=== PATIENT | female | born 1985 | race African-American/Black ===

== ENCOUNTER 2017-11-17 04:50 | Observation (INO) | payer MEDICAID ==
[2017-11-17 06:07] LABS: Urine Bacteria FEW /hpf (None Seen); Urine Blood TRACE /uL (Negative); Urine Budding Yeast OCCASIONAL /hpf (None Seen); Urine Mucus FEW (None Seen); Urine Specific Gravity 1.015 (1.001-1.035); Urine WBC 37 /hpf (0 - 5)
[2017-11-17 06:21] LABS: Alcohol, Urine < 3.0 mg/dL (0-5); Amphetamine Screen, Urine NEGATIVE (NEGATIVE); Barbiturate Scree,Urine NEGATIVE (NEGATIVE); Benzodiazephine Screen, Urine NEGATIVE (NEGATIVE); Cannabinoid Screen, Urine NEGATIVE (NEGATIVE); Cocaine Screen, Urine NEGATIVE (NEGATIVE); Opiate Scree,Urine NEGATIVE (NEGATIVE); Phencyclidine Screen, Urine NEGATIVE (NEGATIVE)
[2017-11-17] MEDS ORDERED: PREN-96 PO (15:49)
== END 2017-11-17 06:40 | disposition home or self-care (01) | DRG 566 ==
LOC: LDRP 04:50
PROVIDERS: ADMIT Obstetrics & Gynecology; ATTEND Obstetrics & Gynecology
DX: O62.9 Abnormality of forces of labor, unspecified (principal); O99.323 Drug use complicating pregnancy, third trimester; F12.90 Cannabis use, unspecified, uncomplicated; O99.89 Other specified diseases and conditions complicating pregnancy, childbirth and the puerperium; M54.9 Dorsalgia, unspecified; O99.343 Other mental disorders complicating pregnancy, third trimester; F31.9 Bipolar disorder, unspecified; F20.9 Schizophrenia, unspecified; Z3A.38 38 weeks gestation of pregnancy
CPT/HCPCS: 80307; 81001; G0378

== ENCOUNTER 2017-11-17 11:55 | Observation (INO) | payer MEDICAID ==
[2017-11-17 13:43] LABS: Urine Bacteria MANY /hpf (None Seen); Urine Blood 1+ /uL (Negative); Urine Mucus FEW (None Seen); Urine WBC 42 /hpf (0 - 5)
[2017-11-17 13:45] LABS: Basophils # (auto) 0 uL; Basophils % (auto) 0.5 % (0.0-2.0); Eosinophils # (auto) 0.1 uL; Eosinophils % (auto) 1.5 % (0.0-7.0); Hematocrit 37.1 % (36.0-46.0); Hemoglobin 12.8 g/dL (12.2-16.2); Lymphocytes # (auto) 1.8 uL; Lymphocytes % (auto) 29.7 % (10.0-50.0); Mean Corpuscular Hemoglobin 32.3 pg (28.0-32.0); Mean Corpuscular Hgb Conc. 34.4 g/dL (32.0-36.0); Mean Corpuscular Volume 93.8 fL (80.0-100.0); Monocytes # (auto) 0.4 uL; Monocytes % (auto) 7.2 % (0.0-12.0); Neutrophils # (auto) 3.6 uL; Neutrophils % (auto) 61.1 % (37.0-80.0); Nucleated Red Blood Cells % 0.1 %; Platelet Count (auto) 246 10^3/uL (140-450); Red Blood Cells 3.96 10^6/uL (4.0-5.20); Red Cell Distribution Width 14.5 % (11.8-14.3); White Blood Cell 5.9 10^3/uL (4.4-10.8)
[2017-11-17 14:02] LABS: Albumin 2.6 g/dL (3.4-5.0); Bilirubin, Total 0.4 mg/dL (0.2-1.0); Calcium 8.7 mg/dL (8.5-10.1); Potassium 3.6 mmol/L (3.5-5.1); Total Protein 6.7 g/dL (6.4-8.2); Uric Acid 5.6 mg/dL (2.6-6.0)
[2017-11-17 14:05] LABS: INR 0.86 (0.9-1.15); Partial Thromboplastin Time 25.7 sec (23.78-33.04); Prothrombin Time 9.3 sec (9.27-12.13)
[2017-11-17] MEDS ORDERED: PREN-96 PO (15:49)
== END 2017-11-17 13:50 | disposition home or self-care (01) | DRG 566 ==
LOC: LDRP 11:55
PROVIDERS: ADMIT Specialist; ATTEND Specialist
DX: O13.9 Gestational [pregnancy-induced] hypertension without significant proteinuria, unspecified trimester (principal); Z3A.00 Weeks of gestation of pregnancy not specified
CPT/HCPCS: 36415; 59025; 80053; 81001; 81002; 84550; 85025; 85610; 85730; G0378

== ENCOUNTER 2017-11-19 10:02 | Observation (INO) | payer MEDICAID ==
[~2017-11-19 10:02] MED LIST: PREN-96 PO
[2017-11-19 11:43] LABS: Protein, Urine 13.8 mg/dL (0.0-11.9)
[2017-11-19 12:04] LABS: 24 Hr. Total Protein, Urine 220.8 mg/24 Hr (<149.1)
== END 2017-11-19 13:10 | disposition home or self-care (01) | DRG 566 ==
LOC: LDRP 10:02
PROVIDERS: ADMIT Specialist; ATTEND Specialist
DX: O13.3 Gestational [pregnancy-induced] hypertension without significant proteinuria, third trimester (principal); O26.893 Other specified pregnancy related conditions, third trimester; R10.11 Right upper quadrant pain; R51 Headache; Z3A.38 38 weeks gestation of pregnancy
CPT/HCPCS: 59025; 76818; 81002; 84156; G0378

== ENCOUNTER 2017-11-22 18:51 | Observation (INO) | payer MEDICAID ==
[2017-11-22] MEDS ORDERED: LABE200T18 PO (19:19)
== END 2017-11-22 20:35 | disposition home or self-care (01) | DRG 566 ==
LOC: LDRP 18:51
PROVIDERS: ADMIT Specialist; ATTEND Specialist
DX: O13.3 Gestational [pregnancy-induced] hypertension without significant proteinuria, third trimester (principal); O99.323 Drug use complicating pregnancy, third trimester; O26.893 Other specified pregnancy related conditions, third trimester; O99.343 Other mental disorders complicating pregnancy, third trimester; F17.210 Nicotine dependence, cigarettes, uncomplicated; R51 Headache; R42 Dizziness and giddiness; Z3A.38 38 weeks gestation of pregnancy; O99.333 Smoking (tobacco) complicating pregnancy, third trimester; F12.90 Cannabis use, unspecified, uncomplicated
CPT/HCPCS: 59025; 76818; 81002; G0378

== ENCOUNTER 2017-11-23 21:25 | Inpatient (IN) | payer MEDICAID ==
[~2017-11-23] VITALS: Ht 170.2 cm; Wt 110.2 kg
[~2017-11-23 21:25] MED LIST changes: +LABE200T18 PO
[2017-11-23 22:14] LABS: Urine Bacteria MOD /hpf (None Seen); Urine Blood Negative /uL (Negative); Urine Mucus FEW (None Seen); Urine Specific Gravity 1.024 (1.001-1.035); Urine WBC 13 /hpf (0 - 5)
[2017-11-23 22:33] LABS: Basophils # (auto) 0 uL; Basophils % (auto) 0.6 % (0.0-2.0); Eosinophils # (auto) 0.1 uL; Eosinophils % (auto) 1.4 % (0.0-7.0); Hematocrit 33.2 % (36.0-46.0); Hemoglobin 11.2 g/dL (12.2-16.2); Lymphocytes # (auto) 1.6 uL; Lymphocytes % (auto) 27.4 % (10.0-50.0); Mean Corpuscular Hemoglobin 32.1 pg (28.0-32.0); Mean Corpuscular Hgb Conc. 33.7 g/dL (32.0-36.0); Mean Corpuscular Volume 95.3 fL (80.0-100.0); Monocytes # (auto) 0.5 uL; Monocytes % (auto) 7.7 % (0.0-12.0); Neutrophils # (auto) 3.8 uL; Neutrophils % (auto) 62.9 % (37.0-80.0); Platelet Count (auto) 214 10^3/uL (140-450); Red Blood Cells 3.48 10^6/uL (4.0-5.20); Red Cell Distribution Width 14.7 % (11.8-14.3)
[2017-11-23 22:51] LABS: INR 0.85 (0.9-1.15); Partial Thromboplastin Time 21.5 sec (23.78-33.04); Prothrombin Time 9.2 sec (9.27-12.13)
[2017-11-23 22:52] LABS: Albumin 2.2 g/dL (3.4-5.0); BUN/Creatinine Ratio 7.7; Bilirubin, Total 0.2 mg/dL (0.2-1.0); Calcium 8.4 mg/dL (8.5-10.1); Potassium 3.9 mmol/L (3.5-5.1); Total Protein 5.7 g/dL (6.4-8.2); Uric Acid 5.9 mg/dL (2.6-6.0)
[2017-11-23 22:52] LABS: Alcohol, Urine < 3.0 mg/dL (0-5); Amphetamine Screen, Urine NEGATIVE (NEGATIVE); Benzodiazephine Screen, Urine NEGATIVE (NEGATIVE); Cannabinoid Screen, Urine NEGATIVE (NEGATIVE); Cocaine Screen, Urine NEGATIVE (NEGATIVE); Opiate Scree,Urine NEGATIVE (NEGATIVE); Phencyclidine Screen, Urine NEGATIVE (NEGATIVE)
[2017-11-23 23:07] LABS: Barbiturate Scree,Urine NEGATIVE (NEGATIVE)
[2017-11-23] MEDS: ACETAMINOPHEN 325 MG TAB PO PRN (23:51)
[2017-11-24] MEDS ORDERED: LACTATED RINGER'S 1,000 ML IV SCH (00:51)
[2017-11-24] MEDS ORDERED: DERMOPLAST 60ML BOTTLE TOP PRN (01:00)
[2017-11-24] MEDS ORDERED: LIDOCAINE 2% (LOCAL ANESTH.) PF 5ml SDV ID PRN (01:00)
[2017-11-24] MEDS ORDERED: CARBOPROST TROMETHAMINE 250 MCG/1ML VIAL IM PRN (01:00)
[2017-11-24] MEDS ORDERED: NALBUPHINE HCL 10 MG/1ml INJECTION IV PRN (01:00)
[2017-11-24] MEDS ORDERED: PENICILLIN G POT 5MIL/D5 50ML 50 ML IV ONE ×2 (01:00→05:45)
[2017-11-24] MEDS ORDERED: PHISODERM TOP SOLN 240ML BTL TOP PRN (01:00)
[2017-11-24] MEDS ORDERED: LACT. RINGERS/OXYTOCIN 20UNITS 1,000 ML IV SCH ×2 (02:26→08:55)
[2017-11-24] MEDS ORDERED: PENICILLIN G POTASSIUM 2,500,000 UNITS in D5W 5% 50 ML IV SCH (05:00)
[2017-11-24] MEDS ORDERED: PROMETHAZINE HCL 25 MG/ML 1ML IV ONE (05:45)
[2017-11-24] MEDS ORDERED: ePHEDrine SULFATE 50 MG/ML AMP IV ONE (07:00)
[2017-11-24] MEDS ORDERED: NALOXONE HCL 0.4 MG/ML VIAL IV ONE (07:00)
[2017-11-24] MEDS ORDERED: fentaNYL CITRATE 100 MCG/2 ML VL IV ONE (07:00)
[2017-11-24] MEDS ORDERED: LIDOCAINE HCL 2 %PF INJ 10ML AMP IJ ONE (07:00)
[2017-11-24] MEDS ORDERED: fentaNYL W ROPIVACAINE 150 ML EPI SCH (07:00)
[2017-11-24] MEDS ORDERED: LACT. RINGERS/OXYTOCIN 20UNITS 500 ML IV ONE (07:55)
[2017-11-24] MEDS: WITCH HAZEL-GLYCERIN PAD TOP PRN (08:17)
[2017-11-24] MEDS: LABETALOL HCL 200 MG TAB PO SCH ×2 (08:51→21:51)
[2017-11-24] MEDS: IBUPROFEN 600 MG TAB PO PRN ×3 (09:12→19:25)
[2017-11-24 11:05] VITALS: BP 124/68
[2017-11-24] MEDS: ACETAMINOPHEN 325 MG TAB PO PRN (14:57)
[2017-11-24 15:20] VITALS: BP 137/82
[2017-11-24] MEDS: HYDROcodone-ACET 5/325MG TAB PO PRN ×2 (17:14→21:50)
[2017-11-24 19:00] VITALS: BP 126/65
[2017-11-24] MEDS ORDERED: TETANUS-DIPTH-ACEL PERTUSSIS 0.5ML SYRG IM ONE (21:15)
[2017-11-24 23:00] VITALS: BP 120/64
[2017-11-25] MEDS: IBUPROFEN 600 MG TAB PO PRN ×2 (01:44→07:30)
[2017-11-25] MEDS: WITCH HAZEL-GLYCERIN PAD TOP PRN (01:49)
[2017-11-25 03:00] VITALS: BP 94/55
[2017-11-25] MEDS: HYDROcodone-ACET 5/325MG TAB PO PRN ×2 (03:17→11:31)
[2017-11-25 07:05] LABS: RPR Non Reactive (Non Reactive)
[2017-11-25 07:30] VITALS: BP 137/76
[2017-11-25 11:10] VITALS: BP 142/86
[2017-11-25] MEDS: LABETALOL HCL 200 MG TAB PO SCH (11:33)
[2017-11-25] MEDS ORDERED: MEASLES, MUMPS & RUBELLA VAC(MMRII) 0.5ML SC ONE (13:15)
[2017-11-25 14:00] VITALS: BP 136/85
== END 2017-11-25 14:10 | disposition home or self-care (01) | DRG 560 ==
LOC: LDRP 21:25 → OBSVTOIN 21:25 → LDRP 22:16
PROVIDERS: ADMIT Specialist; ATTEND Specialist
PROC: 10E0XZZ Delivery of Products of Conception, External Approach (ICD-10-PCS; principal; 2017-11-24)
DX: O13.4 Gestational [pregnancy-induced] hypertension without significant proteinuria, complicating childbirth (principal); Z37.0 Single live birth; Z3A.39 39 weeks gestation of pregnancy
CPT/HCPCS: 36415; 59025; 59409; 80053; 80307; 81001; 81002; 84550; 85025; 85379; 85610; 85730; 86592; 86850; 86900; 86901; 90471; 90715; 96365; 96366; 96374; 96375; G0378; J2001; J2540; J2590; J3010; J7060

== ENCOUNTER 2018-02-05 08:11 | Day surgery (SDC) | payer MEDICAID ==
[~2018-02-05] VITALS: Ht 170.2 cm; Wt 106.6 kg
[2018-02-05] MEDS ORDERED: cefTRIAXone 1GM/50ML D5W 50 ML IV ONE (09:04)
[2018-02-05] MEDS ORDERED: ONDANSETRON HCL 4 MG/2 ML VIAL IV ONE (10:00)
[2018-02-05] MEDS ORDERED: ePHEDrine SULFATE 50 MG/ML AMP IV PRN (10:00)
[2018-02-05] MEDS ORDERED: KETOROLAC TROMETH 30 MG/ML 1ML VIAL IV ONE (10:00)
[2018-02-05] MEDS ORDERED: MORPHINE SULFATE 4 MG/ML SYR/VIAL IV PRN (10:00)
[2018-02-05] MEDS ORDERED: MORPHINE SULFATE 4 MG/ML SYR/VIAL IV ONE (10:00)
[2018-02-05] MEDS ORDERED: LABETALOL HCL 5 MG/ML 4ML SYRINGE IV PRN (10:00)
[2018-02-05] MEDS ORDERED: MIDAZOLAM HCL 1MG/1ML-2 ML VIAL IV PRN (10:00)
[2018-02-05] MEDS ORDERED: HYDROmorphone HCL 2 MG/ML VL IV PRN (10:00)
[2018-02-05] MEDS ORDERED: MEPERIDINE HCL (50 MG/ML) 1 ML VIAL ONE (10:17)
[2018-02-05] MEDS ORDERED: MIDAZOLAM HCL 1MG/1ML-2 ML VIAL ONE (10:17)
[2018-02-05] MEDS ORDERED: fentaNYL CITRATE 100 MCG/2 ML VL ONE (10:17)
[2018-02-05] MEDS ORDERED: SUCCINYLCHOLINE CHLORIDE 20 MG/ML 10ML VIAL IV ONE (10:23)
[2018-02-05] MEDS ORDERED: KETOROLAC TROMETH 30 MG/ML 1ML VIAL ONE (10:31)
[2018-02-05] MEDS ORDERED: PROPOFOL 10 MG/ML 20 ML IV ONE (10:31)
[2018-02-05] MEDS ORDERED: DEXAMETHASONE SOD PHOS 10MG/1ML VIAL INJ ONE (10:31)
[2018-02-05] MEDS ORDERED: LACTATED RINGER'S 1,000 ML IV SCH (11:12)
[2018-02-05] MEDS ORDERED: ONDANSETRON HCL 4 MG/2 ML VIAL IV PRN (11:15)
[2018-02-05 12:46] VITALS: BP 139/79
== END 2018-02-05 12:50 | disposition home or self-care (01) ==
LOC: SUR 08:11
PROVIDERS: ATTEND Specialist
DX: Z30.2 Encounter for sterilization (principal); E66.9 Obesity, unspecified; I10 Essential (primary) hypertension; D64.9 Anemia, unspecified; Z64.1 Problems related to multiparity; Z68.36 Body mass index [BMI] 36.0-36.9, adult; Z87.891 Personal history of nicotine dependence
CPT/HCPCS: 58671; J1170; J2175; J3010; 86850; 86900; 86901; J0330; J0696; J1100; J1885; J2250; J2704